=== PATIENT | male | born 1945 | race Caucasian/White ===

== ENCOUNTER 2022-01-15 08:34 | Inpatient (IN) | payer MEDICARE, MEDICAID, SELFPAY ==
[2022-01-15] VITALS (8 sets, daily range): BP systolic 105–145; BP diastolic 31–83; PULSE 29–49; RESP 12–16; TEMP 36.8–37.1; O2SAT 96–98; BMI 29.2
--- NOTE | ~2022-01-15 | XR_ITS ---
EXAMINATION: XR CHEST CLINICAL INFORMATION: Bradycardia COMPARISON: Chest 03/24/2020 TECHNIQUE: Frontal view of the chest was obtained. FINDINGS: The lungs are well-expanded and clear. The heart size is enlarged. Pulmonary vascularity is normal. No gross bony abnormality seen. XR/XR chest 1V IMPRESSION: Mild cardiomegaly. No acute pulmonary process seen.
[2022-01-15 09:16] LABS: Glucose, Whole Blood 122 mg/dL (60-115)
--- NOTE | 2022-01-15 09:25 | ECG_ITS ---
Test Reason : BRADYCARDIA Blood Pressure : / mmHG Vent. Rate : 037 BPM Atrial Rate : 000 BPM P-R Int : 000 ms QRS Dur : 164 ms QT Int : 520 ms P-R-T Axes : 000 -56 006 degrees QTc Int : 408 ms Atrial fibrillation with slow ventricular response Right bundle branch block Left anterior fascicular block Bifascicular block Septal infarct (cited on or before 24-MAR-2010) Abnormal ECG When compared with ECG of 24-MAR-2010 16:08, Atrial fibrillation has replaced Normal sinus rhythm Vent. rate has decreased Referred By: Yelena Leigh Electronically Signed By:MERLENE WEBER MD
[2022-01-15 09:28] LABS: MANUAL DIFF FLAG NO
[2022-01-15 09:29] LABS: Basophils Percent Auto 0.4 % (0-2); Eosinophils Absolute Auto 0.4 X10*3/uL (0.0-0.4); Eosinophils Percent Auto 4.2 % (0-4); Hematocrit 30.9 % (42.0-52.0); Hemoglobin 10.5 g/dl (14.0-18.0); Imm Gran Abs Auto 0.11 X10*3/uL (0.00-0.03); Imm Gran Pct Auto 1.1 % (0.0-0.4); Lymphocytes Absolute Auto 1.3 X10*3/uL (1.2-4.9); Lymphocytes Percent Auto 12.9 % (20-40); Mean Corpuscular Hemoglobin 30.1 pg (27.0-33.0); Mean Corpuscular Volume 88.5 fL (80.0-98.0); Mean Platelet Volume 9.6 fL (9.4-12.4); Monocytes Absolute Auto 0.9 X10*3/uL (0.1-1.2); Neutrophils Absolute Auto 7.5 x10*3/uL (2.0-8.3); Neutrophils Percent Auto 72.4 % (45-73); Platelet Count 237 X10*3/uL (160-400); Red Blood Count 3.49 X10*6/uL (4.60-5.80); White Blood Count 10.4 X10*3/uL (4.8-10.8)
[2022-01-15 09:44] LABS: INTERNATIONAL NORM RATIO 1.7 (0.9-1.1); Prothrombin Time 19.8 SEC (9.9-13.0)
[2022-01-15 09:47] LABS: Partial Thromboplastin Time 40.4 SEC (24.1-38.0)
[2022-01-15 09:56] LABS: Anion Gap 13 (12-20); Blood Urea Nitrogen 44 mg/dL (9-16); Calcium 8.7 mg/dL (8.4-10.2); Carbon Dioxide 22 mmol/L (22-29); Chloride 95 mmol/L (96-108); Creatinine Clr Calc Pharmacy 60.9; Estimated Glomerular Filt Rate 51; Glucose Random 133 mg/dL (60-115); Potassium 4.7 mmol/L (3.3-5.1); Sodium 125 mmol/L (135-145)
[2022-01-15] MEDS: Lidocaine HCl 1 % MPF 5 ML VIAL SUBCUT (09:58)
--- NOTE | 2022-01-15 09:58 | PC.NURSE ---
3 additional sutures to right lower extremity wound completed by Yelena BARRIENTOS for uncontrolled bleeding. HR noted to be 29-43, Yelena BARRIENTOS aware and new orders issued. Patient c/o dizziness. denies ches pain or palpitations today.
[2022-01-15 10:20] LABS: Alanine Aminotransferase 10 U/L (0-40); Albumin Level 3.2 g/dL (3.5-5.0); Alkaline Phosphatase 53 U/L (39-117); Aspartate Amino Transferase 16 U/L (5-37); Bilirubin Direct 0.4 mg/dL (0.0-0.5); Bilirubin Total 0.9 mg/dL (0.0-1.0); Magnesium 1.7 mg/dL (1.6-2.6); Total Protein 6.2 g/dL (6.5-8.0)
--- NOTE | 2022-01-15 10:26 | ED_ITS ---
HPI - General Adult General Chief complaint: Wound/Laceration Stated complaint: lower leg wound Time Seen by Provider: 01/15/22 08:52 Source: patient Mode of arrival: ambulatory History of Present Illness HPI narrative: 76-year-old male with a past medical history of diabetes, GERD, HTN, on Xarelto, presenting to ED complaining of uncontrolled bleeding to RLE wound s/p dresser falling on leg yesterday and 18 sutures being placed at [place] [facility]. Reports lightheadedness & generalized fatigue. denies fever, chills, CP/ SOB, abdominal pain, nausea /vomiting, headache Onset (ago): day(s) Related Data Home Medications Medication Instructions Recorded Confirmed Lactobacillus acidophilus 1 cap PO DAILY 01/15/22 01/15/22 (Acidophilus) acetaminophen 325 mg tablet 650 mg PO BID 01/15/22 01/15/22 aspirin 81 mg chewable tablet 81 mg PO DAILY 01/15/22 01/15/22 atorvastatin 10 mg tablet 1 tab PO BEDTIME 01/15/22 01/15/22 carvedilol 12.5 mg tablet 1 tab PO BID 01/15/22 01/15/22 cholecalciferol (vitamin D3) 25 25 mcg PO DAILY 01/15/22 01/15/22 mcg (1,000 unit) tablet doxazosin 8 mg tablet 1 tab PO BEDTIME 01/15/22 01/15/22 ferrous sulfate 324 mg (65 mg 324 mg PO DAILY 01/15/22 01/15/22 iron) tablet,delayed release furosemide 40 mg tablet 1 tab PO DAILY 01/15/22 01/15/22 insulin detemir U-100 100 unit/mL 50 unit SUBCUT DAILY 01/15/22 01/15/22 subcutaneous solution (Levemir U-100 Insulin) levothyroxine 50 mcg tablet 1 tab PO DAILY 01/15/22 01/15/22 lisinopril 5 mg tablet 1 tab PO DAILY 01/15/22 01/15/22 multivitamin 1 tab PO DAILY 01/15/22 01/15/22 omeprazole 20 mg capsule,delayed 1 cap PO DAILY 01/15/22 01/15/22 release polyethylene glycol 3350 17 gram 17 g PO DAILY PRN 01/15/22 01/15/22 oral powder packet (Miralax) polyethylene glycol 3350 17 17 g PO MOWEFR 01/15/22 01/15/22 gram/dose oral powder (Miralax) rivaroxaban 20 mg tablet (Xarelto) 1 tab PO DAILY 01/15/22 01/15/22 sitagliptin 50 mg-metformin 500 mg 1 tab PO BID 01/15/22 01/15/22 tablet (Janumet) tamsulosin 0.4 mg capsule 1 cap PO BEDTIME 01/15/22 01/15/22 Allergies Allergy/AdvReac Type Severity Reaction Status Date / Time No Known Allergies Allergy Verified 01/15/22 08:42 Review of Systems Review of Systems: Constitutional: No Fever, No Chills, + Fatigue, No Malaise ENT/Mouth: No Ear Pain, No Nasal Congestion, No sore throat, No Rhinorrhea Eyes: No Eye Pain, No Swelling, No Redness, No Vision Changes Cardiovascular: No Chest Pain, No SOB, No Dyspnea on Exertion, No Orthopnea, No Edema, No Palpitations Respiratory: No Cough, No Sputum, No Dyspnea Gastrointestinal: No Nausea, No Vomiting, No Diarrhea, No Constipation, No Abdominal pain Genitourinary: No Dysuria, No Urinary Frequency, No Flank Pain, No Urinary Flow Changes Musculoskeletal: No joint pain, No Myalgias, No Joint Swelling Skin: + bleeding wound,No rash Neuro: No Weakness, No Numbness, No Paresthesias, + lightheadedness, No Headache Yes all other systems are reviewed and are negative [facility] Past Medical History Attestation statement: The following information was validated with the patient. Medical History Diabetes 1.5, managed as type 1 GERD (gastroesophageal reflux disease) HTN (hypertension) Social History Social History Advance Directives: No Advance Directives Information Provided: No Physical Exam ED Vital Signs: Vital Signs - 24 hr 01/15/22 09:03 01/15/22 09:59 01/15/22 10:00 Temperature 98.3 F Pulse Rate 40 L 29 L 37 L Respiratory Rate 16 16 Blood Pressure 115/34 L 105/39 L Pulse Oximetry 97 97 BMI result Body Mass Index 29.2 Const General: cooperative, healthy appearing and no acute distress Orientation/consciousness: patient oriented x3 Limitations: no limitations HENKY Head: Yes normal to inspection Ears: hearing grossly normal bilaterally General nose exam: Normal external nose present Face and sinus: Yes normal facial exam Eyes General: appearance normal, both eyes and all related structures EOM: EOMs intact bilaterally Neck Neck: Yes normal visual inspection Resp Effort & Inspection: normal respiratory effort and no respiratory distress Auscultation: clear to auscultation bilaterally Cardio Rate: bradycardic Rhythm: abnormal rhythm Heart sounds: S1 normal heart sound present and S2 normal heart sound present GI Inspection: Yes normal to inspection Palpation (GI): Soft to palpation, nontender, no guarding and not rigid Skin Other: right lower extremity wound with intact sutures, weeping. Medial distal laceration with active bleeding Rashes: no rashes Neuro General: patient oriented x3 Gait exam (Neuro): Normal gait present Extrem General: Yes normal to inspection Course Course Course Narrative: - 3 sutures placed at distal laceration with improved bleeding control -1103-- no leukocytosis. H&H 10.5/30.9 ( 11.9/34.9 on labs from 01/01/22), coags mildly elevated - sodium 125 (labs from 01/01/22 126), BUN 44 (38 on previous labs), glucose WNL, troponin 17.6 > will obtain 3 hour repeat. -1130-- compression dressing removed and bleeding controlled. -- case discussed with Cardiology, Dr. Crystal, agrees with admission. Will hold Carvedilol XR chest 1V IMPRESSION: Mild cardiomegaly. No acute pulmonary process seen -1205-- patient admitted for further management Procedures Laceration Laceration 1: Site: lower extremity Side (If applicable): right Description: flap and irregular Depth: simple, single layer Amount of anesthesia used (mL): 2 Skin layer closed with: nylon Size (cm): 4-0 Number of sutures: 3 Technique: simple, interrupted Medical Decision Making [facility] Narrative Medical decision making narrative: 76-year-old male with a past medical history of diabetes, GERD, HTN, on Xarelto, presenting to ED complaining of uncontrolled bleeding to RLE wound s/p dresser falling on leg yesterday and 18 sutures being placed at [place] ED. On exam bradycardic down to 29, symptomatic, right lower extremity wound with active bleeding, will place suture for bleeding control/compression dressing. Rule out ACS/metabolic/ infectious etiologies. Patient is on beta-sandoval, reported history of bradycardia from previous Lyme disease, however states never with HR this low plan: EKG, labs, CXR, address wound, orthostatics, anticipated admission Medical Records Medical records reviewed: Yes I reviewed the patient's medical records. Lab Data Lab results reviewed: Yes I reviewed the patient's lab results. Result diagrams: 01/15/22 09:24 01/15/22 09:24 Labs: Lab Results 01/15/22 01/15/22 01/15/22 Range/Units 09:11 09:24 09:24 WBC 10.4 (4.8-10.8) X10*3/uL RBC 3.49 L (4.60-5.80) X10*6/uL Hgb 10.5 L (14.0-18.0) g/dl Hct 30.9 L (42.0-52.0) % MCV 88.5 (80.0-98.0) fL MCH 30.1 (27.0-33.0) pg MCHC 34.0 (31.0-36.0) g/dl RDW 13.0 (11.0-16.0) % Plt Count 237 (160-400) X10*3/uL MPV 9.6 (9.4-12.4) fL Immature Gran % (Auto) 1.1 H (0.0-0.4) % Neut % (Auto) 72.4 (45-73) % Lymph % (Auto) 12.9 L (20-40) % Conway % (Auto) 9.0 (2-11) % Eos % (Auto) 4.2 H (0-4) % Baso % (Auto) 0.4 (0-2) % Lymph # (Auto) 1.3 (1.2-4.9) X10*3/uL Conway # (Auto) 0.9 (0.1-1.2) X10*3/uL Eos # (Auto) 0.4 (0.0-0.4) X10*3/uL Baso # (Auto) 0.0 (0.0-0.2) X10*3/uL Abs Immat Gran (auto) 0.11 H (0.00-0.03) X10*3/uL Absolute Neuts (auto) 7.5 (2.0-8.3) x10*3/uL Absolute Nucleated RBC 0.000 (0.0-0.012) X10*3/uL Nucleated RBC % (auto) 0.0 (0.0-0.2) /100WBC PT 19.8 H (9.9-13.0) SEC INR 1.7 H (0.9-1.1) APTT 40.4 H (24.1-38.0) SEC Sodium (135-145) mmol/L Potassium (3.3-5.1) mmol/L Chloride (96-108) mmol/L Carbon Dioxide (22-29) mmol/L Anion Gap (12-20) BUN (9-16) mg/dL Creatinine (0.5-1.4) mg/dL Estim Creat Clear Calc Estimated GFR POC Glucose 122 H (60-115) mg/dL Random Glucose (60-115) mg/dL Calcium (8.4-10.2) mg/dL Magnesium (1.6-2.6) mg/dL Total Bilirubin (0.0-1.0) mg/dL Direct Bilirubin (0.0-0.5) mg/dL AST (5-37) U/L ALT (0-40) U/L Alkaline Phosphatase (39-117) U/L Troponin I High Sens (<3.5-35.0) ng/L B-Natriuretic Peptide (<100) pg/mL Total Protein (6.5-8.0) g/dL Albumin (3.5-5.0) g/dL COVID-19 (CARLOS) (Negative) COVID-19 Clin Com 01/15/22 01/15/22 01/15/22 Range/Units 09:24 09:24 10:51 WBC (4.8-10.8) X10*3/uL RBC (4.60-5.80) X10*6/uL Hgb (14.0-18.0) g/dl Hct (42.0-52.0) % MCV (80.0-98.0) fL MCH (27.0-33.0) pg MCHC (31.0-36.0) g/dl RDW (11.0-16.0) % Plt Count (160-400) X10*3/uL MPV (9.4-12.4) fL Immature Gran % (Auto) (0.0-0.4) % Neut % (Auto) (45-73) % Lymph % (Auto) (20-40) % Conway % (Auto) (2-11) % Eos % (Auto) (0-4) % Baso % (Auto) (0-2) % Lymph # (Auto) (1.2-4.9) X10*3/uL Conway # (Auto) (0.1-1.2) X10*3/uL Eos # (Auto) (0.0-0.4) X10*3/uL Baso # (Auto) (0.0-0.2) X10*3/uL Abs Immat Gran (auto) (0.00-0.03) X10*3/uL Absolute Neuts (auto) (2.0-8.3) x10*3/uL Absolute Nucleated RBC (0.0-0.012) X10*3/uL Nucleated RBC % (auto) (0.0-0.2) /100WBC PT (9.9-13.0) SEC INR (0.9-1.1) APTT (24.1-38.0) SEC Sodium 125 L (135-145) mmol/L Potassium 4.7 (3.3-5.1) mmol/L Chloride 95 L (96-108) mmol/L Carbon Dioxide 22 (22-29) mmol/L Anion Gap 13 (12-20) BUN 44 H (9-16) mg/dL Creatinine 1.35 (0.5-1.4) mg/dL Estim Creat Clear Calc 60.9 Estimated GFR 51 POC Glucose (60-115) mg/dL Random Glucose 133 H (60-115) mg/dL Calcium 8.7 (8.4-10.2) mg/dL Magnesium 1.7 (1.6-2.6) mg/dL Total Bilirubin 0.9 (0.0-1.0) mg/dL Direct Bilirubin 0.4 (0.0-0.5) mg/dL AST 16 (5-37) U/L ALT 10 (0-40) U/L Alkaline Phosphatase 53 (39-117) U/L Troponin I High Sens 17.6 (<3.5-35.0) ng/L B-Natriuretic Peptide 52 (<100) pg/mL Total Protein 6.2 L (6.5-8.0) g/dL Albumin 3.2 L (3.5-5.0) g/dL COVID-19 (CARLOS) Negative (Negative) COVID-19 Clin Com See Note ECG Data Attestation: I personally reviewed and interpreted this ECG as follows: Prior ECG tracings: available for review Interpretation: EKG with irregular rate with slow ventricular response. Rate of 37. QRS 164. QTC 408. No STEMI. Significant change from prior Discharge Plan Discharge Clinical Impression: Symptomatic bradycardia, Bleeding from wound Patient Disposition: Admitted As Inpatient
[2022-01-15 10:29] LABS: B Type Natriuretic Peptide 52 pg/mL (<100); Troponin-I High Sensitivity 17.6 ng/L (<3.5-35.0)
[2022-01-15] MEDS: 0.9 % Sodium Chloride 500 ML 999 ML IV (10:35)
[2022-01-15 11:13] LABS: COVID-19 Test Negative (Negative)
--- NOTE | 2022-01-15 11:22 | PHA.MEDREC ---
Pharmacy Consult ? Medication Reconciliation Pharmacy has completed the medication reconciliation. Patient has medicaiton list from [facility] that lines with claim history. Odette White, ThuyD
--- NOTE | 2022-01-15 11:26 | PC.NURSE ---
patient rotated onto left side for comfort to patient's sacrum. patient in no obvious distress at this time, pressure dressing removed. bleeding controlled, loose dressing placed on wound at this time
--- NOTE | 2022-01-15 12:47 | PM.IMHP ---
History of Present Illness Date of Service: 01/15/22 Chief Complaint: bleeding rle wound 76-year-old male presented with right lower extremity wound bleeding. Patient is newly transferred from intermediate facility to senior living. He had a dresser fall on his leg and 18 sutures placed at [place] [facility]. He reports now that he is uncontrolled bleeding at site. Patient is on Xarelto for AFib. He is also on aspirin for history of CVA. Bleeding was controlled by ED team. Patient also noted to be bradycardic as low as high 20s, he is asymptomatic, he reports he has history of bradycardia but never goes slow. He notes some conduction defects since history of Lyme disease in the , patient appears to be an carvedilol 12.5 mg b.i.d. reportedly for hypertension. Patient also noted to have hyponatremia of 125, reviewing previous labs this appears to be chronic. Patient is on furosemide, he also reports until 2 days prior to presentation, regular drinking 2 L of water before bedtime. Patient denies chest pain, fever, chills. Review of Systems Review of Systems: Constitutional: Denies fever, denies Chills Eyes: denies blurry vision ENT: denies sore throat CVS: denies chest pain Respiratory: Denies dyspnea GI: no abdominal pain : denies dysuria MSK: denies neck pain Skin: denies rash Neuro: denies specific motor weakness Psych: denies suicidal ideation Endocrine: denies heat/cold intolerance Hematologic: easy bleeding Allergy: denies hives [facility] Medical History Chronic atrial fibrillation CVA (cerebral vascular accident) Diabetes mellitus GERD (gastroesophageal reflux disease) HTN (hypertension) Hyponatremia Hypothyroid Lyme disease Unilateral AKA Urinary retention Family History Son Diabetes Social History Alcohol intake: never Patient Tobacco Use Status: Never used Tobacco Use of substances other than those prescribed or required for medical reasons: No Advance Directives: No Advance Directives Information Provided: No Meds Allergies Allergy/AdvReac Type Severity Reaction Status Date / Time No Known Allergies Allergy Verified 01/15/22 08:42 Active Medications: Current Medications Acetaminophen (Acetaminophen 325 Mg Tablet) 650 mg PO BID [place] Aspirin (Aspirin 81 Mg Tab.Chew) 81 mg PO DAILY [facility] Atorvastatin Calcium (Atorvastatin Calcium 10 Mg Tablet) 10 mg PO BEDTIME [facility] Dextrose (Dextrose 50 % 25 Gm/50 Ml Syringe) 25 gm IVPUSH Q15M PRN; Protocol PRN Reason: per Hypoglycemia Standing Ord. Doxazosin Mesylate (Doxazosin Mesylate 2 Mg Tablet) 8 mg PO BEDTIME [facility]; Protocol Enoxaparin Sodium (Enoxaparin Sodium 40 Mg/0.4 Ml Syringe) 40 mg SUBCUT Q24H [facility] Ferrous Sulfate (Ferrous Sulfate 324 Mg Tablet.) 324 mg PO DAILY [facility] Glucose (Glucose Gel 15 Gm Gel..Gram.) 15 gm PO Q15M PRN; Protocol PRN Reason: per Hypoglycemia Standing Ord. Insulin Glargine (Insulin Glargine,Hum.Rec.Anlog 100 Unit/Ml 10 Ml Vial) 15 unit SUBCUT BEDTIME [facility] Insulin Human Lispro (Insulin Lispro 100 Unit/Ml 3 Ml Vial) 0 unit SUBCUT QIDACHS [facility]; Protocol Levothyroxine Sodium (Levothyroxine Sodium 50 Mcg Tablet) 50 mcg PO DAILY@0600 [facility] Lisinopril (Lisinopril 5 Mg Tablet) 5 mg PO DAILY [facility]; Protocol Multivitamins/Vitamin C (Multivitamin Tablet) 1 tab PO DAILY [facility] Omeprazole (Omeprazole 20 Mg Capsule.) 20 mg PO DAILY@0630 [facility] Pharmacy Consult (Consult Rx Perform Med Rec) 1 each MISCELLANE ONCE PRN PRN Reason: Consult order Sodium Chloride (0.9 % Sodium Chloride Flush 3 Ml Syringe) 3 ml IVFLUSH QSHIFT [facility] Vitamin D (Cholecalciferol (Vitamin D3) 25 Mcg Tablet) 25 mcg PO DAILY [facility] Home Medications Medication Instructions Recorded Confirmed Last Taken Type Lactobacillus acidophilus 1 cap PO DAILY 01/15/22 01/15/22 01/14/22 History (Acidophilus) acetaminophen 325 mg tablet 650 mg PO BID 01/15/22 01/15/22 01/14/22 History aspirin 81 mg chewable tablet 81 mg PO DAILY 01/15/22 01/15/22 01/14/22 History atorvastatin 10 mg tablet 1 tab PO BEDTIME 01/15/22 01/15/22 01/14/22 History carvedilol 12.5 mg tablet 1 tab PO BID 02/01/15/22 01/14/22 History cholecalciferol (vitamin D3) 25 25 mcg PO DAILY 01/15/22 01/15/22 01/14/22 History mcg (1,000 unit) tablet doxazosin 8 mg tablet 1 tab PO BEDTIME 01/15/22 01/15/22 01/14/22 History ferrous sulfate 324 mg (65 mg 324 mg PO DAILY 01/15/22 01/15/22 01/14/22 History iron) tablet,delayed release furosemide 40 mg tablet 1 tab PO DAILY 01/15/22 01/15/22 01/14/22 History insulin detemir U-100 100 unit/mL 50 unit SUBCUT DAILY 01/15/22 01/15/22 01/14/22 History subcutaneous solution (Levemir U-100 Insulin) levothyroxine 50 mcg tablet 1 tab PO DAILY 01/15/22 01/15/22 01/14/22 History lisinopril 5 mg tablet 1 tab PO DAILY 01/15/22 01/15/22 01/14/22 History multivitamin 1 tab PO DAILY 01/15/22 01/15/22 01/14/22 History omeprazole 20 mg capsule,delayed 1 cap PO DAILY 01/15/22 01/15/22 01/14/22 History release polyethylene glycol 3350 17 gram 17 g PO DAILY PRN 01/15/22 01/15/22 Unknown History oral powder packet (Miralax) polyethylene glycol 3350 17 17 g PO MOWEFR 01/15/22 01/15/22 01/12/22 History gram/dose oral powder (Miralax) rivaroxaban 20 mg tablet (Xarelto) 1 tab PO DAILY 01/15/22 01/15/22 01/14/22 History sitagliptin 50 mg-metformin 500 mg 1 tab PO BID 01/15/22 01/15/22 01/14/22 History tablet (Janumet) tamsulosin 0.4 mg capsule 1 cap PO BEDTIME 01/15/22 01/15/22 01/14/22 History Physical Exam Vital Signs and Narrative: Vital Signs: Last Vital Signs Temp 98.3 F 01/15/22 09:03 Pulse 37 L 01/15/22 10:00 Resp 16 01/15/22 10:00 BP 105/39 L 01/15/22 10:00 Pulse Ox 97 02/18/22 10:00 BMI result Body Mass Index 29.2 General: no acute distress HEENT: atraumatic Neck: normal to visual inspection CVS: S1, S2, RRR Resp: CTA bilateral Chest: non tender GI: soft, non tender, non distended : no CVA tenderness, chronic dodd in place Skin: no rashes Extremities: RLE wound dressed (not examined to allow for bleeding control), Left AKA Neuro: Oriented X3, mild left hemiparesis Psych: cooperative Results Labs CBC and Chem 7: 01/15/22 09:24 01/15/22 09:24 Labs: Laboratory Results - last 24 hr 01/15/22 01/15/22 01/15/22 09:11 09:24 09:24 MCV 88.5 MCH 30.1 MCHC 34.0 RDW 13.0 Plt Count 237 MPV 9.6 Immature Gran % (Auto) 1.1 H Neut % (Auto) 72.4 Lymph % (Auto) 12.9 L Carson % (Auto) 9.0 Eos % (Auto) 4.2 H Baso % (Auto) 0.4 Lymph # (Auto) 1.3 Carson # (Auto) 0.9 Eos # (Auto) 0.4 Baso # (Auto) 0.0 Abs Immat Gran (auto) 0.11 H Absolute Neuts (auto) 7.5 Absolute Nucleated RBC 0.000 Nucleated RBC % (auto) 0.0 PT 19.8 H INR 1.7 H APTT 40.4 H Anion Gap Estim Creat Clear Calc Estimated GFR POC Glucose 122 H Random Glucose Calcium Magnesium Total Bilirubin Direct Bilirubin AST ALT Alkaline Phosphatase B-Natriuretic Peptide Total Protein Albumin COVID-19 (CARLOS) COVID-19 Clin Com 01/15/22 01/15/22 01/15/22 09:24 09:24 10:51 MCV MCH MCHC RDW Plt Count MPV Immature Gran % (Auto) Neut % (Auto) Lymph % (Auto) Carson % (Auto) Eos % (Auto) Baso % (Auto) Lymph # (Auto) Carson # (Auto) Eos # (Auto) Baso # (Auto) Abs Immat Gran (auto) Absolute Neuts (auto) Absolute Nucleated RBC Nucleated RBC % (auto) PT INR APTT Anion Gap 13 Estim Creat Clear Calc 60.9 Estimated GFR 51 POC Glucose Random Glucose 133 H Calcium 8.7 Magnesium 1.7 Total Bilirubin 0.9 Direct Bilirubin 0.4 AST 16 ALT 10 Alkaline Phosphatase 53 B-Natriuretic Peptide 52 Total Protein 6.2 L Albumin 3.2 L COVID-19 (CARLOS) Negative COVID-19 Clin Com See Note Imaging Radiologist's Impressions: Impressions Chest X-Ray 01/15/22 10:47 IMPRESSION: Mild cardiomegaly. No acute pulmonary process seen. Assessment and Plan (1) Hyponatremia: Status: Acute Plan 76M presented for bleeding rle wound, found to have bradycardia, hyponatremia bleeding RLE wound dressed/compression hold xarelto for now chronic atrial fibrillation with slow ventircular response hold carvedilol, monitor on tele, cardio eval holding xarelto for wound bleeding hyponatremia hold lasix fluid restrict, monitor check urine sodium, osm HTN coreg on hold lisinopril ?chf - unspecified lasix on hold DM basal, bolus insulin history of cva mild left hemiparesis asa, statin hypothyroid synthroid chronic urinary retention alpha sandoval dodd dvt prophylaxis - will use lovenox while holding xarelto full code Quality Stroke Does the patient have a stroke diagnosis?: No VTE Prior VTE?: No VTE Risk Level:: Medical - moderate - high VTE Device Contraindication: Treatment Not Indicated VTE Drug Contraindication: N/A - Med Ordered
[2022-01-15 13:09] LABS: Appearance Urine HAZY; Color Urine YELLOW; Glucose Urine UA NEG (NEG); Leukocyte Esterase Urine 3+ (NEG); Nitrite Urine POS (NEG); PH 5.5 (5.0-8.0); Urine Blood TRACE (NEG); Urine Ketones NEG (NEG); Urine Protein NEG (NEG-TRACE)
[2022-01-15 13:19] LABS: WBC Urine 50-75 /HPF (0-4)
[2022-01-15 13:20] LABS: Bacteria Urine 2+ /LPF; Squamous Epithelial Cell Urine 1+ /LPF
[2022-01-15 13:21] LABS: Mucus Urine TRACE /LPF; Sodium Urine Random < 20.0 mmol/L
[2022-01-15 13:26] LABS: Osmolality Urine 286 mosm/kg (373-1093)
--- NOTE | 2022-01-15 14:42 | PM.CNCAR ---
History of Present Illness History of Present Illness Date of Service: 01/15/22 Requesting physician: Elías Bob Chief complaint: symptomatic bradycardia Narrative: I was consulted to see Chuy in cardiology consultation today for bradycardia. He is a 76-year-old male who lives in a nursing facility due to inability to take care in ambulate because of amputation. Patient was brought to the emergency room because he had injury to his right leg with continued bleeding the which could not be stopped. He then underwent wound therapy in the ED with closure. However he was noted to be bradycardic with heart rate in the 30s. He also has symptoms of lightheadedness heart rate went into the 20s. Therefore decision was made to be admitting him to the hospital for bradycardia with symptoms. Patient is a poor historian. Patient has prior history of diabetes difficult control, left above knee amputation for infection, hypertension, chronic atrial fibrillation, question stroke. Patient has been on oral anticoagulation therapy as well as carvedilol for rate control. Patient says he has always bradycardic with heart rate in the 40s and in the past he has complained about lightheadedness but no workup has been pursued. He is very vague about any other prior cardiac history regarding prior myocardial infarction. Says he has some kind of valve issues, very nonspecific Review of Systems Constitutional: Constitutional: Reports no additional constitutional complaints Eyes: Eyes: Reports no additional eye complaints Cardiovascular: Cardiovascular: Denies chest pain, Reports lightheadedness, Denies Loss of Consciousness, Denies palpitations and Denies dyspnea Respiratory: Respiratory: Reports no additional respiratory complaints and Denies dyspnea Gastrointestinal: Gastrointestinal: Reports no additional gastrointestinal complaints Musculoskeletal: Musculoskeletal: Reports no additional musculoskeletal complaints Neurologic: Reports system reviewed and no additional complaints, except as documented Psychiatric: Psychiatric: Reports no additional psychiatric complaints Endocrine: Endocrine: Reports no additional endocrine complaints and Denies palpitations PMFSH Past Medical History Medical History Chronic atrial fibrillation CVA (cerebral vascular accident) Diabetes mellitus GERD (gastroesophageal reflux disease) HTN (hypertension) Hyponatremia Hypothyroid Lyme disease Unilateral AKA Urinary retention Family History Family History Son Diabetes Social History Social History Alcohol intake: never Patient Tobacco Use Status: Never used Tobacco Use of substances other than those prescribed or required for medical reasons: No Advance Directives: No Advance Directives Information Provided: No Meds Allergies Allergy/AdvReac Type Severity Reaction Status Date / Time No Known Allergies Allergy Verified 01/15/22 08:42 Active Medications: Current Medications Acetaminophen (Acetaminophen 325 Mg Tablet) 650 mg PO BID [facility] Aspirin (Aspirin 81 Mg Tab.Chew) 81 mg PO DAILY [facility] Atorvastatin Calcium (Atorvastatin Calcium 10 Mg Tablet) 10 mg PO BEDTIME [facility] Dextrose (Dextrose 50 % 25 Gm/50 Ml Syringe) 25 gm IVPUSH Q15M PRN; Protocol PRN Reason: per Hypoglycemia Standing Ord. Doxazosin Mesylate (Doxazosin Mesylate 2 Mg Tablet) 8 mg PO BEDTIME [facility]; Protocol Enoxaparin Sodium (Enoxaparin Sodium 40 Mg/0.4 Ml Syringe) 40 mg SUBCUT Q24H [facility] Ferrous Sulfate (Ferrous Sulfate 324 Mg Tablet.) 324 mg PO DAILY [facility] Glucose (Glucose Gel 15 Gm Gel..Gram.) 15 gm PO Q15M PRN; Protocol PRN Reason: per Hypoglycemia Standing Ord. Insulin Glargine (Insulin Glargine,Hum.Rec.Anlog 100 Unit/Ml 10 Ml Vial) 15 unit SUBCUT BEDTIME [facility] Insulin Human Lispro (Insulin Lispro 100 Unit/Ml 3 Ml Vial) 0 unit SUBCUT QIDACHS [facility]; Protocol Levothyroxine Sodium (Levothyroxine Sodium 50 Mcg Tablet) 50 mcg PO DAILY@0600 [facility] Lisinopril (Lisinopril 5 Mg Tablet) 5 mg PO DAILY [facility]; Protocol Multivitamins/Vitamin C (Multivitamin Tablet) 1 tab PO DAILY [facility] Omeprazole (Omeprazole 20 Mg Capsule.) 20 mg PO DAILY@0630 [facility] Pharmacy Consult (Consult Rx Perform Med Rec) 1 each MISCELLANE ONCE PRN PRN Reason: Consult order Sodium Chloride (0.9 % Sodium Chloride Flush 3 Ml Syringe) 3 ml IVFLUSH QSHIFT [facility] Vitamin D (Cholecalciferol (Vitamin D3) 25 Mcg Tablet) 25 mcg PO DAILY [facility] Home Medications Medication Instructions Recorded Confirmed Last Taken Type Lactobacillus acidophilus 1 cap PO DAILY 01/15/22 01/15/22 01/14/22 History (Acidophilus) acetaminophen 325 mg tablet 650 mg PO BID 01/15/22 01/15/22 01/14/22 History aspirin 81 mg chewable tablet 81 mg PO DAILY 01/15/22 01/15/22 01/14/22 History atorvastatin 10 mg tablet 1 tab PO BEDTIME 01/15/22 01/15/22 01/14/22 History carvedilol 12.5 mg tablet 1 tab PO BID 01/15/22 01/15/22 01/14/22 History cholecalciferol (vitamin D3) 25 25 mcg PO DAILY 01/15/22 01/15/22 01/14/22 History mcg (1,000 unit) tablet doxazosin 8 mg tablet 1 tab PO BEDTIME 01/15/22 01/15/22 01/14/22 History ferrous sulfate 324 mg (65 mg 324 mg PO DAILY 01/15/22 01/15/22 01/14/22 History iron) tablet,delayed release furosemide 40 mg tablet 1 tab PO DAILY 01/15/22 01/15/22 01/14/22 History insulin detemir U-100 100 unit/mL 50 unit SUBCUT DAILY 01/15/22 01/15/22 01/14/22 History subcutaneous solution (Levemir U-100 Insulin) levothyroxine 50 mcg tablet 1 tab PO DAILY 01/15/22 01/15/22 01/14/22 History lisinopril 5 mg tablet 1 tab PO DAILY 01/15/22 01/15/22 01/14/22 History multivitamin 1 tab PO DAILY 01/15/22 01/15/22 01/14/22 History omeprazole 20 mg capsule,delayed 1 cap PO DAILY 01/15/22 01/15/22 01/14/22 History release polyethylene glycol 3350 17 gram 17 g PO DAILY PRN 01/15/22 01/15/22 Unknown History oral powder packet (Miralax) polyethylene glycol 3350 17 17 g PO MOWEFR 01/15/22 01/15/22 01/12/22 History gram/dose oral powder (Miralax) rivaroxaban 20 mg tablet (Xarelto) 1 tab PO DAILY 01/15/22 01/15/22 01/14/22 History sitagliptin 50 mg-metformin 500 mg 1 tab PO BID 01/15/22 01/15/22 01/14/22 History tablet (Janumet) tamsulosin 0.4 mg capsule 1 cap PO BEDTIME 01/15/22 01/15/22 01/14/22 History Physical Exam Vital Signs: Vital Signs: Last Vital Signs Temp 98.3 F 01/15/22 09:03 Pulse 37 L 01/15/22 10:00 Resp 16 01/15/22 10:00 BP 105/39 L 01/15/22 10:00 Pulse Ox 97 01/15/22 10:00 BMI result Body Mass Index 29.2 Const: General: cooperative, comfortable, no acute distress, alert and awake Nutritional Appearance: obese Orientation/consciousness: patient oriented x3 HENMT: Head: Yes normocephalic and Yes atraumatic Neck: Neck: Yes trachea midline, Yes supple and Yes no JVD Resp: Effort & Inspection: normal respiratory effort Auscultation: clear to auscultation bilaterally Cardio: Jugular venous distension: no JVD Rate: bradycardic Rhythm: abnormal rhythm irregularly irregular Heart sounds: S1 normal heart sound present, S2 normal heart sound present, no click, no gallops and no murmurs GI: Auscultation: normal bowel sounds Skin: General skin exam: no rashes or lesions noted Neuro: General: patient oriented x3 and no focal motor deficits Objective Labs and Meds Result diagrams: 01/15/22 09:24 01/15/22 09:24 Lab results: Laboratory Results - last 24 hr 01/15/22 01/15/22 01/15/22 09:11 09:24 09:24 WBC 10.4 RBC 3.49 L Hgb 10.5 L Hct 30.9 L MCV 88.5 MCH 30.1 MCHC 34.0 RDW 13.0 Plt Count 237 MPV 9.6 Immature Gran % (Auto) 1.1 H Neut % (Auto) 72.4 Lymph % (Auto) 12.9 L [place] % (Auto) 9.0 Eos % (Auto) 4.2 H Baso % (Auto) 0.4 Lymph # (Auto) 1.3 [place] # (Auto) 0.9 Eos # (Auto) 0.4 Baso # (Auto) 0.0 Abs Immat Gran (auto) 0.11 H Absolute Neuts (auto) 7.5 Absolute Nucleated RBC 0.000 Nucleated RBC % (auto) 0.0 PT 19.8 H INR 1.7 H APTT 40.4 H Sodium Potassium Chloride Carbon Dioxide Anion Gap BUN Creatinine Estim Creat Clear Calc Estimated GFR POC Glucose 122 H Random Glucose Calcium Magnesium Total Bilirubin Direct Bilirubin AST ALT Alkaline Phosphatase Troponin I High Sens B-Natriuretic Peptide Total Protein Albumin Urine Color Urine Appearance Urine pH Ur Specific [place] Urine Protein Urine Glucose (UA) Urine Ketones Urine Blood Urine Nitrite Ur Leukocyte Esterase Urine RBC Urine WBC Ur Squamous Epith Cells Urine Bacteria Urine Mucus Urine Osmolality Ur Random Sodium COVID-19 (CARLOS) COVID-19 Clin Com 01/15/22 01/15/22 01/15/22 09:24 09:24 10:51 WBC RBC Hgb Hct MCV MCH MCHC RDW Plt Count MPV Immature Gran % (Auto) Neut % (Auto) Lymph % (Auto) [place] % (Auto) Eos % (Auto) Baso % (Auto) Lymph # (Auto) [place] # (Auto) Eos # (Auto) Baso # (Auto) Abs Immat Gran (auto) Absolute Neuts (auto) Absolute Nucleated RBC Nucleated RBC % (auto) PT INR APTT Sodium 125 L Potassium 4.7 Chloride 95 L Carbon Dioxide 22 Anion Gap 13 BUN 44 H Creatinine 1.35 Estim Creat Clear Calc 60.9 Estimated GFR 51 POC Glucose Random Glucose 133 H Calcium 8.7 Magnesium 1.7 Total Bilirubin 0.9 Direct Bilirubin 0.4 AST 16 ALT 10 Alkaline Phosphatase 53 Troponin I High Sens 17.6 B-Natriuretic Peptide 52 Total Protein 6.2 L Albumin 3.2 L Urine Color Urine Appearance Urine pH Ur Specific [place] Urine Protein Urine Glucose (UA) Urine Ketones Urine Blood Urine Nitrite Ur Leukocyte Esterase Urine RBC Urine WBC Ur Squamous Epith Cells Urine Bacteria Urine Mucus Urine Osmolality Ur Random Sodium COVID-19 (CARLOS) Negative COVID-19 Clin Com See Note 01/15/22 01/15/22 01/15/22 12:50 12:50 12:50 WBC RBC Hgb Hct MCV MCH MCHC RDW Plt Count MPV Immature Gran % (Auto) Neut % (Auto) Lymph % (Auto) [place] % (Auto) Eos % (Auto) Baso % (Auto) Lymph # (Auto) [place] # (Auto) Eos # (Auto) Baso # (Auto) Abs Immat Gran (auto) Absolute Neuts (auto) Absolute Nucleated RBC Nucleated RBC % (auto) PT INR APTT Sodium Potassium Chloride Carbon Dioxide Anion Gap BUN Creatinine Estim Creat Clear Calc Estimated GFR POC Glucose Random Glucose Calcium Magnesium Total Bilirubin Direct Bilirubin AST ALT Alkaline Phosphatase Troponin I High Sens B-Natriuretic Peptide Total Protein Albumin Urine Color YELLOW Urine Appearance HAZY Urine pH 5.5 Ur Specific [place] 1.010 Urine Protein NEG Urine Glucose (UA) NEG Urine Ketones NEG Urine Blood TRACE Urine Nitrite POS H Ur Leukocyte Esterase 3+ H Urine RBC 1-4 Urine WBC 50-75 H Ur Squamous Epith Cells 1+ Urine Bacteria 2+ Urine Mucus TRACE Urine Osmolality 286 L Ur Random Sodium < 20.0 COVID-19 (CARLOS) COVID-19 Clin Com Imaging Radiologist's impression: Impressions Chest X-Ray 01/15/22 10:47 IMPRESSION: Mild cardiomegaly. No acute pulmonary process seen. Assessment and Plan (1) Bradycardia: Status: Acute patient with symptomatic bradycardia with atrial fibrillation with slow ventricular response in the setting of chronic known atrial fibrillation on current therapy with carvedilol. Patient says he has always been bradycardic, not sure why he is still on carvedilol therapy. He denies any prior history of tachycardia or tachy-lynsey syndrome. he does have underlying conduction system issues and very well could have progressive conduction system disease that may require pacing therapy. However at this point time will discontinue his carvedilol therapy and monitor him closely with full disclosure cardiac telemetry. This was discussed with him. If he remains persistently bradycardic with symptoms despite adequate what short time of 24-48 hours and/ or develops tachycardia that requires rate slowing medication require pacemaker placement. This was discussed with him. He understands and agrees. For now continue to monitor him. Does not require transvenous pacemaker as his blood pressure and overall cardiac output appears to be stable. Will follow with you. Thank you for allowing me to partake in his care Procedures Date of Service Date of Service: 01/15/22
[2022-01-15 16:18] LABS: Glucose, Whole Blood 127 mg/dL (60-115)
[2022-01-15] MEDS: 0.9 % Sodium Chloride Flush 3 ML SYRINGE IVFLUSH (16:20)
--- NOTE | 2022-01-15 21:30 | PC.NURSE ---
patient's wound dressing changed at this time. patient has dried blood noted to dressing, no active bleeding. patient updated on plan of care, no apparent distress
[2022-01-15] MEDS: Doxazosin Mesylate 2 MG TABLET 8 MG PO (22:06)
[2022-01-15] MEDS: Acetaminophen 325 MG TABLET 650 MG PO (22:07)
[2022-01-15] MEDS: Atorvastatin Calcium 10 MG TABLET PO (22:07)
[2022-01-15] MEDS: Insulin Glargine,Hum.rec.anlog 100 UNIT/ML 10 ML VIAL 15 UNIT SUBCUT (22:08)
[2022-01-15] MEDS: Insulin Lispro 100 UNIT/ML 3 ML VIAL SUBCUT (22:10)
[2022-01-15 22:26] LABS: Glucose, Whole Blood 200 mg/dL (60-115)
--- NOTE | 2022-01-15 23:25 | PC.NURSE ---
Assumed care of pt from main ED. Pt in NAD, attached to panel monitor and pulse ox, vitals as charted. Pt denies sx of bradycardia / hypotension. Call light at hand, educated to call for assistance. Awaiting inpatient bed assignment
--- NOTE | 2022-01-15 23:50 | PC.NURSE ---
Pt HR consistently in 30s, intermittently drops to 26. Pt remains asymptomatic. MD Grimes made aware
[2022-01-16 04:00] VITALS: BMI 29.2
[2022-01-16] MEDS: Omeprazole 20 MG CAPSULE.DR PO (05:52)
[2022-01-16] MEDS: Levothyroxine Sodium 50 MCG TABLET PO (05:52)
[2022-01-16] MEDS: Acetaminophen 325 MG TABLET 650 MG PO ×2 (05:53→22:20)
[2022-01-16 06:02] VITALS: BP 99/36; PULSE 30; RESP 14; O2SAT 96
--- NOTE | 2022-01-16 06:02 | PC.NURSE ---
Pt dressing changed by DUANE Rodriguez per pt request. Jennifer relayed to this RN that pt was endorsing pain. Administered tylenol (earlier than scheduled, okay per MD Grimes). Asked pt to score pt, pt stated it isn't so much pain, I'm concerned about the leg clotting. Pt stated no one is listening or doing anything about this. This RN assessed RLE and noted that foot is cool to the touch, pulses intact. Attempted to discuss POC w/ pt, explained we are holding anticoagulation and evaluating response, pt stated I'm more concerned about a clot than bleeding. Educated pt that uncontrolled hemorrhage would be equally as concerning, pt disagreeable, stated an aneurysm will kill me first. Stated I know my body better than anyone else and I am sick of this, maybe I will just leave the hospital right now. While administering medications, pt stated well I should be on a strict diet for the 'tests' today, they said nothing to eat or drink. Explained to pt that often NPO status includes an exception for sips w/ meds. Pt stated do whatever you think you are supposed to be doing. Pt did take meds, stated I'm from [place] and we do things differently there, we don't drink ice water with our pills. Offered ice-free water, pt stated don't even bother. While exiting room offered to re-cover leg w/ blanket, pt stated if someone is embarrassed about it you can cover my foot, yesterday I was butt and balls out but no one would cover me or pay any attention to me. Pt has call light at hand, encouraged to request assistance if needed.
--- NOTE | 2022-01-16 06:07 | PC.NURSE ---
cleaned and rewrapped PTS wound on right leg. Right leg is elevated with pillow underneath.
[2022-01-16 06:50] LABS: Hematocrit 27.1 % (42.0-52.0); Hemoglobin 9.2 g/dl (14.0-18.0); Mean Corpuscular HGB Conc 33.9 g/dl (31.0-36.0); Mean Corpuscular Hemoglobin 30.2 pg (27.0-33.0); Mean Corpuscular Volume 88.9 fL (80.0-98.0); Mean Platelet Volume 10.2 fL (9.4-12.4); Platelet Count 235 X10*3/uL (160-400); Red Blood Count 3.05 X10*6/uL (4.60-5.80); White Blood Count 7.9 X10*3/uL (4.8-10.8)
[2022-01-16 07:00] LABS: Anion Gap 10 (12-20); Blood Urea Nitrogen 38 mg/dL (9-16); Calcium 8.7 mg/dL (8.4-10.2); Carbon Dioxide 28 mmol/L (22-29); Chloride 97 mmol/L (96-108); Creatinine Clr Calc Pharmacy 70.3; Estimated Glomerular Filt Rate > 60; Glucose Fasting 111 mg/dL (60-99); Potassium 4.7 mmol/L (3.3-5.1); Sodium 130 mmol/L (135-145)
[2022-01-16] MEDS: Multivitamin TABLET 1 TAB PO (08:28)
[2022-01-16] MEDS: Aspirin 81 MG TAB.CHEW PO (08:28)
[2022-01-16] MEDS: Ferrous Sulfate 324 MG TABLET.DR PO (08:28)
[2022-01-16] MEDS: Cholecalciferol (Vitamin D3) 25 MCG TABLET PO (08:28)
[2022-01-16] MEDS: lisinopriL 5 MG TABLET PO (08:28)
[2022-01-16] MEDS: Enoxaparin Sodium 40 MG/0.4 ML SYRINGE SUBCUT (08:28)
[2022-01-16] MEDS: 0.9 % Sodium Chloride Flush 3 ML SYRINGE IVFLUSH (08:30)
--- NOTE | 2022-01-16 08:54 | PC.NURSE ---
Pt A&Ox3, agitated and agressive towards this RN, states youre stupid and a knoucklehead and you don't know how to do your job States this is a horrible hospital and he gets better care in [place], he states he came in for the sutures in his RLE to be looked at and cleaned due to the consistant bleeding, when I asked him where he got the sutures, he told me I was stupid because clearly they are in his leg, accused me of not knowing what I was doing and too concerned about his HR, when I told the patient I was aware of his leg and the issues involved he said I clearly was a bad nurse because I didn't touch his leg, I explained to pt I had just checked his pedal pulse, asked him if he could feel be touching and checked CMS he turned away from me and said I was a bad nurse. Pt then continued to berate me, explained I was trying to provide the best care for him for not only his HR but also his leg, he continued to call me names and said I didn't know anything, medicated as per MAR orders, told patient I was not going to take verbal abuse from him and handed him his call stuart. Told him to call if needs anything. Will continue to monitor.
--- NOTE | 2022-01-16 09:42 | MHC.CM.PN ---
Received phone call from patients Nurse Deck Lid Fitter at [facility], Bart Dumont.? Patient new to [facility] in [facility] and was set up with [facility] for wound care prior to admission. Bart requested we refer back to them for VNA services on DC.? [facility]. Bart requested we call him on discharge [phone],?or call the [facility] director at .?
--- NOTE | 2022-01-16 10:48 | PC.NURSE ---
Vanessa Wren, from [facility] [phone]
[2022-01-16 10:57] VITALS: BP 120/39; PULSE 36; RESP 14; TEMP 36.4; O2SAT 95
--- NOTE | 2022-01-16 11:05 | PM.PNCARD ---
Subjective Subjective Date of Service: 01/16/22 Principal diagnosis: bradycardia, atrial fibrillation Interval history: patient remains bradycardia with heart rate in the 30s. Blood pressure on the lower side. patient is very upset about his leg wound. He is not lightheaded when I was conversing with him. However is very upset and does not want to provide much history. I told him about need for pacemaker and he adamantly refuses Review of Systems Review of Systems Yes Other ( patient not wanting to converse) Physical Exam Vital Signs: Last Vital Signs Temp 97.5 F 01/16/22 10:57 Pulse 36 L 01/16/22 10:57 Resp 14 01/16/22 10:57 BP 120/39 L 01/16/22 10:57 Pulse Ox 95 01/16/22 10:57 BMI result Body Mass Index 29.2 patient did not allow any further examination Objective Labs and Meds Result diagrams: 01/16/22 05:53 01/16/22 05:53 Lab results: Laboratory Results - last 24 hr 01/15/22 01/15/22 01/15/22 09:11 10:51 12:50 WBC RBC Hgb Hct MCV MCH MCHC RDW Plt Count MPV Absolute Nucleated RBC Nucleated RBC % (auto) Sodium Potassium Chloride Carbon Dioxide Anion Gap BUN Creatinine Estim Creat Clear Calc Estimated GFR POC Glucose 122 H Fasting Glucose Calcium Urine Color YELLOW Urine Appearance HAZY Urine pH 5.5 Ur Specific [place] 1.010 Urine Protein NEG Urine Glucose (UA) NEG Urine Ketones NEG Urine Blood TRACE Urine Nitrite POS H Ur Leukocyte Esterase 3+ H Urine RBC 1-4 Urine WBC 50-75 H Ur Squamous Epith Cells 1+ Urine Bacteria 2+ Urine Mucus TRACE Urine Osmolality Ur Random Sodium COVID-19 (CARLOS) Negative COVID-19 Clin Com See Note 01/15/22 01/15/22 01/15/22 12:50 12:50 16:14 WBC RBC Hgb Hct MCV MCH MCHC RDW Plt Count MPV Absolute Nucleated RBC Nucleated RBC % (auto) Sodium Potassium Chloride Carbon Dioxide Anion Gap BUN Creatinine Estim Creat Clear Calc Estimated GFR POC Glucose 127 H Fasting Glucose Calcium Urine Color Urine Appearance Urine pH Ur Specific [place] Urine Protein Urine Glucose (UA) Urine Ketones Urine Blood Urine Nitrite Ur Leukocyte Esterase Urine RBC Urine WBC Ur Squamous Epith Cells Urine Bacteria Urine Mucus Urine Osmolality 286 L Ur Random Sodium < 20.0 COVID-19 (CARLOS) COVID-19 Clin Com 01/15/22 01/16/22 01/16/22 21:22 05:53 05:53 WBC 7.9 RBC 3.05 L Hgb 9.2 L Hct 27.1 L MCV 88.9 MCH 30.2 MCHC 33.9 RDW 13.0 Plt Count 235 MPV 10.2 Absolute Nucleated RBC 0.000 Nucleated RBC % (auto) 0.0 Sodium 130 L Potassium 4.7 Chloride 97 Carbon Dioxide 28 Anion Gap 10 L BUN 38 H Creatinine 1.17 Estim Creat Clear Calc 70.3 Estimated GFR > 60 POC Glucose 200 H Fasting Glucose 111 H Calcium 8.7 Urine Color Urine Appearance Urine pH Ur Specific [place] Urine Protein Urine Glucose (UA) Urine Ketones Urine Blood Urine Nitrite Ur Leukocyte Esterase Urine RBC Urine WBC Ur Squamous Epith Cells Urine Bacteria Urine Mucus Urine Osmolality Ur Random Sodium COVID-19 (CARLOS) COVID-19 Clin Com Imaging Radiologist's impression: Impressions Chest X-Ray 01/15/22 10:47 IMPRESSION: Mild cardiomegaly. No acute pulmonary process seen. Progress Note: A&P Assessment and plan (1) Bradycardia: Status: Acute Assessment and Plan: patient with symptomatic bradycardia with heart rate in the 20s with symptoms of lightheadedness. Patient remains bradycardic despite withdrawal of carvedilol therapy and there appears to be possibly conduction system disease given that he has underlying bifascicular block. Recommend single-chamber pacemaker placement. Patient however adamantly refuses to undergo pacemaker placement. We discussed the risk associated with this including risk of cardiac arrest. He says does not care and he wants to sign out against medical advise from this hospital. He says he will seek care somewhere else. Not sure if patient understands the gravity of the situation completely. discussed with thoracic surgery as well. (2) Chronic atrial fibrillation: Status: Acute Assessment and Plan: Chronic atrial fibrillation, currently with slow ventricular response. Avoid rate controlling medications. Has not developed any significant tachycardia at this point in time. Continue full oral anticoagulation as before. Will sign of the case at current time Unless patient remains hospitalized. Please call us Fall Risk Details Current Medications: Current Medications Acetaminophen (Acetaminophen 325 Mg Tablet) 650 mg PO BID [facility] Last Admin: 01/16/22 08:29 Dose: Not Given Documented by: Aspirin (Aspirin 81 Mg Tab.Chew) 81 mg PO DAILY [facility] Last Admin: 01/16/22 08:28 Dose: 81 mg Documented by: Atorvastatin Calcium (Atorvastatin Calcium 10 Mg Tablet) 10 mg PO BEDTIME [facility] Last Admin: 01/15/22 22:07 Dose: 10 mg Documented by: Dextrose (Dextrose 50 % 25 Gm/50 Ml Syringe) 25 gm IVPUSH Q15M PRN; Protocol PRN Reason: per Hypoglycemia Standing Ord. Doxazosin Mesylate (Doxazosin Mesylate 2 Mg Tablet) 8 mg PO BEDTIME [facility]; Protocol Last Admin: 01/15/22 22:06 Dose: 8 mg Documented by: Enoxaparin Sodium (Enoxaparin Sodium 40 Mg/0.4 Ml Syringe) 40 mg SUBCUT Q24H [facility] Last Admin: 01/16/22 08:28 Dose: 40 mg Documented by: Ferrous Sulfate (Ferrous Sulfate 324 Mg Tablet.) 324 mg PO DAILY [facility] Last Admin: 01/16/22 08:28 Dose: 324 mg Documented by: Glucose (Glucose Gel 15 Gm Gel..Gram.) 15 gm PO Q15M PRN; Protocol PRN Reason: per Hypoglycemia Standing Ord. Insulin Glargine (Insulin Glargine,Hum.Rec.Anlog 100 Unit/Ml 10 Ml Vial) 15 unit SUBCUT BEDTIME [facility] Last Admin: 01/15/22 22:08 Dose: 15 unit Documented by: Insulin Human Lispro (Insulin Lispro 100 Unit/Ml 3 Ml Vial) 0 unit SUBCUT QIDACHS [facility]; Protocol Last Admin: 01/16/22 08:27 Dose: Not Given Documented by: Levothyroxine Sodium (Levothyroxine Sodium 50 Mcg Tablet) 50 mcg PO DAILY@0600 [facility] Last Admin: 01/16/22 05:52 Dose: 50 mcg Documented by: Lisinopril (Lisinopril 5 Mg Tablet) 5 mg PO DAILY [facility]; Protocol Last Admin: 01/16/22 08:28 Dose: 5 mg Documented by: Multivitamins/Vitamin C (Multivitamin Tablet) 1 tab PO DAILY [facility] Last Admin: 01/16/22 08:28 Dose: 1 tab Documented by: Omeprazole (Omeprazole 20 Mg Capsule.) 20 mg PO DAILY@0630 [facility] Last Admin: 01/16/22 05:52 Dose: 20 mg Documented by: Pharmacy Consult (Consult Rx Perform Med Rec) 1 each MISCELLANE ONCE PRN PRN Reason: Consult order Sodium Chloride (0.9 % Sodium Chloride Flush 3 Ml Syringe) 3 ml IVFLUSH QSHIFT [facility] Last Admin: 01/16/22 08:30 Dose: 3 ml Documented by: Vitamin D (Cholecalciferol (Vitamin D3) 25 Mcg Tablet) 25 mcg PO DAILY [facility] Last Admin: 01/16/22 08:28 Dose: 25 mcg Documented by: Time Spent With Patient Time: Total time spent is greater than 50% in coordination of care (as documented) at patient's floor/unit and/or counseling patient: Time with patient: 25 - 35 minutes Progress Note: Quality Stroke Does the patient have a stroke diagnosis?: No Procedures Date of Service Date of Service: 01/16/22
[2022-01-16 11:31] LABS: Glucose, Whole Blood 119 mg/dL (60-115)
[2022-01-16 13:05] LABS: Glucose, Whole Blood 137 mg/dL (60-115)
--- NOTE | 2022-01-16 13:52 | HO.PM.IMPN ---
Subjective Subjective Date of Service: 01/16/22 Interval History: cc: bleeding leg interval history: pain at leg Cardiovascular Cardiovascular: Reports no additional cardiovascular complaints Respiratory Respiratory: Reports no additional respiratory complaints Physical Exam Vital Signs: Vital Signs: Last Vital Signs Temp 97.5 F 01/16/22 10:57 Pulse 36 L 01/16/22 10:57 Resp 14 01/16/22 10:57 BP 120/39 L 01/16/22 10:57 Pulse Ox 95 01/16/22 10:57 BMI result Body Mass Index 29.2 General: AO X 3, no acute distress Resp: CTA bilateral, no accessory muscles used CVS: S1,S2, slow irregular GI: soft, non tender, non distended Neuro: mild left hemiparesis Psych: agitated affect, appropriate insight left AKA right dressing on leg Objective Data Active Medications Acetaminophen (Acetaminophen 325 Mg Tablet) 650 mg PO BID [facility] Last Admin: 01/16/22 08:29 Dose: Not Given Documented by: WADE Non-Admin Reason: Previously Administered Aspirin (Aspirin 81 Mg Tab.Chew) 81 mg PO DAILY [facility] Last Admin: 01/16/22 08:28 Dose: 81 mg Documented by: WADE Atorvastatin Calcium (Atorvastatin Calcium 10 Mg Tablet) 10 mg PO BEDTIME [facility] Last Admin: 01/15/22 22:07 Dose: 10 mg Documented by: CRISTOPHER Dextrose (Dextrose 50 % 25 Gm/50 Ml Syringe) 25 gm IVPUSH Q15M PRN; Protocol PRN Reason: per Hypoglycemia Standing Ord. Doxazosin Mesylate (Doxazosin Mesylate 2 Mg Tablet) 8 mg PO BEDTIME [facility]; Protocol Last Admin: 01/15/22 22:06 Dose: 8 mg Documented by: CRISTOPHER Enoxaparin Sodium (Enoxaparin Sodium 40 Mg/0.4 Ml Syringe) 40 mg SUBCUT Q24H [facility] Last Admin: 01/16/22 08:28 Dose: 40 mg Documented by: WADE Ferrous Sulfate (Ferrous Sulfate 324 Mg Tablet.Dr) 324 mg PO DAILY [facility] Last Admin: 01/16/22 08:28 Dose: 324 mg Documented by: WADE Glucose (Glucose Gel 15 Gm Gel..Gram.) 15 gm PO Q15M PRN; Protocol PRN Reason: per Hypoglycemia Standing Ord. Insulin Glargine (Insulin Glargine,Hum.Rec.Anlog 100 Unit/Ml 10 Ml Vial) 15 unit SUBCUT BEDTIME [facility] Last Admin: 01/15/22 22:08 Dose: 15 unit Documented by: CRISTOPHER Insulin Human Lispro (Insulin Lispro 100 Unit/Ml 3 Ml Vial) 0 unit SUBCUT QIDACHS [facility]; Protocol Last Admin: 01/16/22 13:03 Dose: Not Given Documented by: WADE Non-Admin Reason: No Insulin Coverage Levothyroxine Sodium (Levothyroxine Sodium 50 Mcg Tablet) 50 mcg PO DAILY@0600 [facility] Last Admin: 01/16/22 05:52 Dose: 50 mcg Documented by: MIGUEL Lisinopril (Lisinopril 5 Mg Tablet) 5 mg PO DAILY [facility]; Protocol Last Admin: 01/16/22 08:28 Dose: 5 mg Documented by: WADE Multivitamins/Vitamin C (Multivitamin Tablet) 1 tab PO DAILY [facility] Last Admin: 01/16/22 08:28 Dose: 1 tab Documented by: WADE Omeprazole (Omeprazole 20 Mg Capsule.) 20 mg PO DAILY@0630 [facility] Last Admin: 01/16/22 05:52 Dose: 20 mg Documented by: MIGUEL Pharmacy Consult (Consult Rx Perform Med Rec) 1 each MISCELLANE ONCE PRN PRN Reason: Consult order Sodium Chloride (0.9 % Sodium Chloride Flush 3 Ml Syringe) 3 ml IVFLUSH QSHIFT [facility] Last Admin: 01/16/22 08:30 Dose: 3 ml Documented by: WADE Vitamin D (Cholecalciferol (Vitamin D3) 25 Mcg Tablet) 25 mcg PO DAILY [facility] Last Admin: 01/16/22 08:28 Dose: 25 mcg Documented by: WADE Labs CBC & Chem 7: 01/16/22 05:53 01/16/22 05:53 Labs: Laboratory Results - last 24 hr 01/15/22 01/15/22 01/16/22 16:14 21:22 05:53 MCV 88.9 MCH 30.2 MCHC 33.9 RDW 13.0 Plt Count 235 MPV 10.2 Absolute Nucleated RBC 0.000 Nucleated RBC % (auto) 0.0 Anion Gap Estim Creat Clear Calc Estimated GFR POC Glucose 127 H 200 H Fasting Glucose Calcium 01/16/22 01/16/22 01/16/22 05:53 07:22 12:57 MCV MCH MCHC RDW Plt Count MPV Absolute Nucleated RBC Nucleated RBC % (auto) Anion Gap 10 L Estim Creat Clear Calc 70.3 Estimated GFR > 60 POC Glucose 119 H 137 H Fasting Glucose 111 H Calcium 8.7 Assessment and Plan (1) Diabetes mellitus: Status: Acute Plan 76M presented for bleeding rle wound, found to have bradycardia, hyponatremia bleeding RLE wound dressed/compression continue hold xarelto for now chronic atrial fibrillation with slow ventircular response hold carvedilol, monitor on tele, cardio appreciated, likely to need pacer if no improvement off coreg holding xarelto for wound bleeding hyponatremia holding lasix fluid restrict, monitor, improved at appripriate rate HTN coreg on hold lisinopril ?chf - unspecified lasix on hold DM basal, bolus insulin history of cva mild left hemiparesis asa, statin hypothyroid synthroid chronic urinary retention alpha sandoval dodd dvt prophylaxis - will use lovenox while holding xarelto full code Quality Stroke Does the patient have a stroke diagnosis?: No VTE Prior VTE?: No VTE Risk Level:: Medical - moderate - high VTE Device Contraindication: Treatment Not Indicated VTE Drug Contraindication: N/A - Med Ordered
--- NOTE | 2022-01-16 14:25 | PC.NURSE ---
Pt remains A&Ox3, agitated, denies CP, lightheadedness or dizziness at this time. HR in the 30's on the monitor with BP as documented. Call stuart within reach. Will continue to monitor.
--- NOTE | 2022-01-16 15:14 | PC.NURSE ---
Pt's sister asking questions, per pt, intermediate medical staff Vanessa Wren states pt can return to the home, MD made aware. Sister provided Vanessa Wren's contact information. Sister on the phone with Vanessa rWen at this time.
[2022-01-16 15:22] VITALS: BP 91/49; PULSE 50; RESP 14; TEMP 36.7; O2SAT 97
[2022-01-16 18:28] LABS: Glucose, Whole Blood 103 mg/dL (60-115)
[2022-01-16 19:25] VITALS: BP 91/49; PULSE 52; RESP 15; TEMP 36.4
--- NOTE | 2022-01-16 20:01 | PC.NURSE ---
RN AT PTS BEDSIDE TO ASSESS PTS WOUND. PT CONTINUES TO BE VERY VERBALLY ABUSIVE/VERBALLY AGGRESSIVE TO STAFF REFUSING CARE STATING 'DO NOT TOUCH ME, LET IT GET AN INFECTION SO I CAN COME BACK HERE AND NATASHA THE SHIT OUT OF YOU ASSHOLES DESPITE THE PATIENT CONTINUING TO BERATE THIS RN I DID ATTEMPT TO PROVIDE TO GIVE WOUND CARE TO THIS PATIENT WHO STATED GET THE HELL OUT OF MY ROOM AND SHUT THE GOD DAMN LIGHT OFF ON YOUR WAY OUT
[2022-01-16 21:25] LABS: Glucose, Whole Blood 148 mg/dL (60-115)
--- NOTE | 2022-01-16 21:39 | PC.NURSE ---
RN AT BEDSIDE TO EXPLAIN PTS MEDS TO HIM, PT STATES I DON'T WANT TO HEAR WHATEVER THE HELL YOU HAVE TO SAY, GIVE ME WHAT YOU ARE GOING TO GIVE ME AND GET OUT. CURRENT AWAITING PHARMACY TO BRING MEDS AND PT WILL BE MEDICATED W/EVERYTHING AT ONCE TO LIMIT CONTINUED VERBAL ABUSE THE STAFF IS RECEIVING WHEN PROVIDING CARE.
[2022-01-16] MEDS: Doxazosin Mesylate 2 MG TABLET 8 MG PO (22:18)
[2022-01-16] MEDS: Pregabalin 100 MG CAPSULE PO (22:19)
[2022-01-16] MEDS: Insulin Glargine,Hum.rec.anlog 100 UNIT/ML 10 ML VIAL 15 UNIT SUBCUT (22:19)
[2022-01-16] MEDS: Atorvastatin Calcium 10 MG TABLET PO (22:19)
--- NOTE | 2022-01-17 01:12 | PC.NURSE ---
HOSPITALIST MADE AWARE OF CONTINUED BRADYCARDIA, PT 30S-50S THROUGHOUT THE NIGHT, CONTINUES TO DENY CP, OR FEELING LIGHT HEADED. PER PREVIOUS CARDIOLOGY NOTE PT IS REFUSING ANY CARDIAC CARE, STATES HE WILL SEEK CARDIAC TX ELSEWHERE BECAUSE THIS HOSPITAL AND THE STAFF ARE ALL INCOMPETENT HERE AWARE
[2022-01-17 06:58] LABS: Hematocrit 26.3 % (42.0-52.0); Hemoglobin 8.9 g/dl (14.0-18.0); Mean Corpuscular HGB Conc 33.8 g/dl (31.0-36.0); Mean Corpuscular Hemoglobin 30.5 pg (27.0-33.0); Mean Corpuscular Volume 90.1 fL (80.0-98.0); Mean Platelet Volume 10.3 fL (9.4-12.4); Platelet Count 247 X10*3/uL (160-400); Red Blood Count 2.92 X10*6/uL (4.60-5.80); Red Cell Distribution Width 13.2 % (11.0-16.0)
[2022-01-17 07:23] LABS: Anion Gap 12 (12-20); Blood Urea Nitrogen 32 mg/dL (9-16); Carbon Dioxide 26 mmol/L (22-29); Chloride 100 mmol/L (96-108); Creatinine Clr Calc Pharmacy 65.3; Estimated Glomerular Filt Rate 55; Glucose Fasting 124 mg/dL (60-99); Potassium 4.8 mmol/L (3.3-5.1); Sodium 133 mmol/L (135-145)
[2022-01-17 08:39] LABS: Glucose, Whole Blood 126 mg/dL (60-115)
[2022-01-17 08:55] VITALS: BP 119/36; PULSE 42; RESP 14; O2SAT 97
[2022-01-17] MEDS: Acetaminophen 325 MG TABLET 650 MG PO ×2 (09:20→21:13)
[2022-01-17] MEDS: Pregabalin 100 MG CAPSULE PO ×2 (09:20→21:13)
[2022-01-17] MEDS: Aspirin 81 MG TAB.CHEW PO (09:20)
[2022-01-17] MEDS: Cholecalciferol (Vitamin D3) 25 MCG TABLET PO (09:20)
[2022-01-17] MEDS: Omeprazole 20 MG CAPSULE.DR PO (09:20)
[2022-01-17] MEDS: Multivitamin TABLET 1 TAB PO (09:20)
[2022-01-17] MEDS: Levothyroxine Sodium 50 MCG TABLET PO (09:20)
[2022-01-17] MEDS: Ferrous Sulfate 324 MG TABLET.DR PO (09:20)
[2022-01-17] MEDS: Enoxaparin Sodium 40 MG/0.4 ML SYRINGE SUBCUT (09:26)
--- NOTE | 2022-01-17 10:28 | PC.NURSE ---
925 Pt is very agitated upon nurse arrival to the room. Pt stating that the nursing staff is not provided him what he needs. pt states that he needs antibiotics for his wound, that he has been asking for ensure and no one has gotten it for him, and pt is requesting to be discharged. RN vance texted Dr. Bob. Per Dr. Bob, pt to not get abx. Dr. Restrepo said it is okay for pt to have ensure, so RN called the kitchen and got [address] Bob we are waiting for cardio to sign off on pt to go home. Pt okay with plan. pt is resting in the bed at this time offering no more complaints than what is listed. belongings and callbell within reach. Pt medicated per [address] cardio reaching out to Dr. Bob.
--- NOTE | 2022-01-17 12:14 | PC.NURSE ---
1135 RN changed pts wound dressing per provider verbal order. wound cleaned with sterile normal saline, and dressed with xeroform and telfa pads. ABD placed on top of the telfa and the wound is wrapped. xeroform and telfa placed per provider verbal order at bedside. [id number] RN received a phone call from Fani at [employer]. Contact # [phone]. Per Fani, pt is not able to go to the facility because there is no one to do the intake for him and pt needs wound services and [facility] set up insulin admin. Dr. Bob made aware and is following up. Pt made aware and is very upset. Pt stating that this is the same thing that happened yesterday. pt agitated at this time. redirection and reassurance provided by this RN. Pt not receptive to RN education and reassurance at this time.
--- NOTE | 2022-01-17 12:27 | MHC.CM.PN ---
Addendum entered by Amy Sanders 01/17/22 13:37: CALL FROM HEATH RUSSO OF [facility] ([phone]) WHO SAYS THAT [facility] CAN PROVIDE WOUND CARE AND PATIENT'S DAILY INSULIN INJECTIONS CASE MANAGEMENT ASKED TO CALL KARAN BACK WHEN A DC TIME AND DATE IS ARRANGED SO THAT SHE CAN ARRANGE FOR AN RN. PATIENT TELLS THIS SECURITY GUARDS DISPATCHER THAT HIS SISTER SAM IS HIS HCP, AND HE ALSO WANTS TO ADD HIS [employer] BOX TENDER, L[place]IS TO THE DOCUMENT. HCP COMPLETED AND UPLOADED INTO [employer]. PATIENT HAS ORIGINAL. AT TIME OF THIS NOTE, PATIENT' BROTHER MATIAS IS BEDSIDE VISITING. COMPETENCY EVAL ORDERED FOR DETERMINATION OF PATIENT'S SUMIT,LITY TO UNDERSTAND THE SEVERITY OF ILLNESS, WELL IMPLICATIONS OF NOT RECEIVING A PACE MAKER FOR CONTINUED HEALTH THIS SECURITY GUARDS DISPATCHER ALSO SPOKE WITH SKILLED NURSING RN [place] ([phone]) WHO IS AWARE OF HCP COMPLETION, ALTRANAIAS AVAILABILITY, AND COMPETENCY EVAL ORDER. Original Note: CALL TO [facility] [place] (A) @ [phone]. MESSAGE LEFT WITH ON-CALL SERVICE TO HAVE AN AGENT CALL THIS SECURITY GUARDS DISPATCHER BACK. CM ATTEMPTING TO FIND OUT IF SERVICES WILL BE OFFERED FOR PATIENT STILL, HE PLANS TO DC TODAY. CM TO AMEND THIS NOTE WITH RESULTS OF ATTEMPT AND NOTIFY HOSPITALIST
--- NOTE | 2022-01-17 12:31 | P.PNIM_ITS ---
Subjective Subjective Date of Service: 01/17/22 Interval History: cc: bleeding leg interval history: pain at leg Cardiovascular Cardiovascular: Reports no additional cardiovascular complaints Respiratory Respiratory: Reports no additional respiratory complaints Physical Exam Vital Signs: Vital Signs: Last Vital Signs Temp 97.5 F 01/16/22 19:25 Pulse 42 L 01/17/22 08:55 Resp 14 01/17/22 08:55 BP 119/36 L 01/17/22 08:55 Pulse Ox 97 01/17/22 08:55 BMI result Body Mass Index 29.2 General: AO X 3, no acute distress Resp:? CTA bilateral, no accessory muscles used CVS: S1,S2, slow irregular GI: soft, non tender, non distended Neuro:? mild left hemiparesis Psych: agitated affect, appropriate insight? left AKA right leg wound, no active bleed, non infected, small hematoma, Objective Data Active Medications Acetaminophen (Acetaminophen 325 Mg Tablet) 650 mg PO BID [facility] Last Admin: 01/17/22 09:20 Dose: 650 mg Documented by: AMY Aspirin (Aspirin 81 Mg Tab.Chew) 81 mg PO DAILY [facility] Last Admin: 01/17/22 09:20 Dose: 81 mg Documented by: AMY Atorvastatin Calcium (Atorvastatin Calcium 10 Mg Tablet) 10 mg PO BEDTIME [facility] Last Admin: 01/16/22 22:19 Dose: 10 mg Documented by: JASWANT Dextrose (Dextrose 50 % 25 Gm/50 Ml Syringe) 25 gm IVPUSH Q15M PRN; Protocol PRN Reason: per Hypoglycemia Standing Ord. Doxazosin Mesylate (Doxazosin Mesylate 2 Mg Tablet) 8 mg PO BEDTIME [facility]; Protocol Last Admin: 01/16/22 22:18 Dose: 8 mg Documented by: JASWANT Enoxaparin Sodium (Enoxaparin Sodium 40 Mg/0.4 Ml Syringe) 40 mg SUBCUT Q24H [facility] Last Admin: 01/17/22 09:26 Dose: 40 mg Documented by: AMY Ferrous Sulfate (Ferrous Sulfate 324 Mg Tablet.Dr) 324 mg PO DAILY [facility] Last Admin: 01/17/22 09:20 Dose: 324 mg Documented by: AMY Glucose (Glucose Gel 15 Gm Gel..Gram.) 15 gm PO Q15M PRN; Protocol PRN Reason: per Hypoglycemia Standing Ord. Insulin Glargine (Insulin Glargine,Hum.Rec.Anlog 100 Unit/Ml 10 Ml Vial) 15 unit SUBCUT BEDTIME [facility] Last Admin: 01/16/22 22:19 Dose: 15 unit Documented by: JASWANT Insulin Human Lispro (Insulin Lispro 100 Unit/Ml 3 Ml Vial) 0 unit SUBCUT QIDACHS [facility]; Protocol Last Admin: 01/17/22 08:59 Dose: Not Given Documented by: AMY Non-Admin Reason: No Insulin Coverage Levothyroxine Sodium (Levothyroxine Sodium 50 Mcg Tablet) 50 mcg PO DAILY@0600 [facility] Last Admin: 01/17/22 09:20 Dose: 50 mcg Documented by: AMY Multivitamins/Vitamin C (Multivitamin Tablet) 1 tab PO DAILY [facility] Last Admin: 01/17/22 09:20 Dose: 1 tab Documented by: AMY Omeprazole (Omeprazole 20 Mg Jewel.) 20 mg PO DAILY@0630 [facility] Last Admin: 01/17/22 09:20 Dose: 20 mg Documented by: AMY Pharmacy Consult (Consult Rx Perform Med Rec) 1 each MISCELLANE ONCE PRN PRN Reason: Consult order Pregabalin (Pregabalin 100 Mg Capsule) 100 mg PO BID [facility] Last Admin: 01/17/22 09:20 Dose: 100 mg Documented by: AMY Sodium Chloride (0.9 % Sodium Chloride Flush 3 Ml Syringe) 3 ml IVFLUSH QSHIFT [facility] Last Admin: 01/17/22 09:14 Dose: Not Given Documented by: AMY Non-Admin Reason: Med Not Available Vitamin D (Cholecalciferol (Vitamin D3) 25 Mcg Tablet) 25 mcg PO DAILY [facility] Last Admin: 01/17/22 09:20 Dose: 25 mcg Documented by: AMY Labs CBC & Chem 7: 01/17/22 05:58 01/17/22 05:58 Labs: Laboratory Results - last 24 hr 01/16/22 01/16/22 01/16/22 12:57 18:20 21:20 MCV MCH MCHC RDW Plt Count MPV Absolute Nucleated RBC Nucleated RBC % (auto) Anion Gap Estim Creat Clear Calc Estimated GFR POC Glucose 137 H 103 148 H Fasting Glucose Calcium 01/17/22 01/17/22 01/17/22 05:58 05:58 08:36 MCV 90.1 MCH 30.5 MCHC 33.8 RDW 13.2 Plt Count 247 MPV 10.3 Absolute Nucleated RBC 0.000 Nucleated RBC % (auto) 0.0 Anion Gap 12 Estim Creat Clear Calc 65.3 Estimated GFR 55 POC Glucose 126 H Fasting Glucose 124 H Calcium 9.0 Assessment and Plan (1) Diabetes mellitus: Status: Acute Plan 76M presented for bleeding rle wound, found to have bradycardia, hyponatremia bleeding RLE wound dressed/compression continue hold xarelto for now chronic atrial fibrillation with slow ventircular response continue to hold coreg, cardio recommending pacer, patient refusing, he has demonstrated understanding of risks including hyponatremia holding lasix fluid restrict,improved at appropriate rate HTN coreg on hold lisinopril ?chf - unspecified lasix on hold DM basal, bolus insulin history of cva mild left hemiparesis asa, statin hypothyroid synthroid chronic urinary retention alpha sandoval dodd dvt prophylaxis - will use lovenox while holding xarelto full code Quality Stroke Does the patient have a stroke diagnosis?: No VTE Prior VTE?: No VTE Risk Level:: Medical - moderate - high VTE Device Contraindication: Treatment Not Indicated VTE Drug Contraindication: N/A - Med Ordered
[2022-01-17 12:40] VITALS: BP 120/34; PULSE 41; RESP 12; O2SAT 97
[2022-01-17 13:09] LABS: Glucose, Whole Blood 165 mg/dL (60-115)
[2022-01-17 16:53] VITALS: BP 118/57; PULSE 44; RESP 16; TEMP 36.7; O2SAT 97
[2022-01-17 17:15] LABS: Glucose, Whole Blood 196 mg/dL (60-115)
[2022-01-17] MEDS: Insulin Lispro 100 UNIT/ML 3 ML VIAL SUBCUT ×2 (18:22→21:14)
[2022-01-17] MEDS: 0.9 % Sodium Chloride Flush 3 ML SYRINGE IVFLUSH (18:23)
[2022-01-17 19:10] VITALS: BP 114/53; PULSE 42; RESP 16; TEMP 36.6; O2SAT 96
[2022-01-17 20:18] LABS: Glucose, Whole Blood 169 mg/dL (60-115)
[2022-01-17] MEDS: Atorvastatin Calcium 10 MG TABLET PO (21:13)
[2022-01-17] MEDS: Doxazosin Mesylate 2 MG TABLET 8 MG PO (21:14)
[2022-01-17] MEDS: Insulin Glargine,Hum.rec.anlog 100 UNIT/ML 10 ML VIAL 15 UNIT SUBCUT (21:14)
[2022-01-17 23:21] VITALS: BP 137/65; PULSE 46; RESP 18; TEMP 37.3; O2SAT 95
[2022-01-18] MEDS: 0.9 % Sodium Chloride Flush 3 ML SYRINGE IVFLUSH ×3 (00:19→16:09)
[2022-01-18 03:55] VITALS: BP 131/57; PULSE 44; RESP 18; TEMP 37.4; O2SAT 96
[2022-01-18] MEDS: Levothyroxine Sodium 50 MCG TABLET PO (06:32)
[2022-01-18] MEDS: Omeprazole 20 MG CAPSULE.DR PO (06:32)
[2022-01-18 07:45] LABS: Glucose, Whole Blood 131 mg/dL (60-115)
[2022-01-18 08:00] VITALS: BP 138/58; PULSE 41; RESP 16; TEMP 37.1; O2SAT 95
--- NOTE | 2022-01-18 08:52 | PC.NURSE ---
Skin/wound assessment completed. 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 Woundres gel applied covered with foam dressing for protection. Patient has a large laceration with 19 sutures and hematoma. Bruising length of kapoor with small blisters. Xeroform applied to laceration and small open area covered with non woven gauze, roll gauze and samuel wrap. No other skin issues noted at this time.
[2022-01-18] MEDS: Aspirin 81 MG TAB.CHEW PO (09:19)
[2022-01-18] MEDS: Ferrous Sulfate 324 MG TABLET.DR PO (09:19)
[2022-01-18] MEDS: Acetaminophen 325 MG TABLET 650 MG PO (09:19)
[2022-01-18] MEDS: Pregabalin 100 MG CAPSULE PO (09:19)
[2022-01-18] MEDS: Cholecalciferol (Vitamin D3) 25 MCG TABLET PO (09:19)
[2022-01-18] MEDS: Multivitamin TABLET 1 TAB PO (09:19)
[2022-01-18 11:38] LABS: Glucose, Whole Blood 175 mg/dL (60-115)
--- NOTE | 2022-01-18 11:39 | MHC.CM.PN ---
awaiting psych evl to determine competency for dc decision
[2022-01-18 11:50] VITALS: BP 141/54; PULSE 43; RESP 16; TEMP 37.4; O2SAT 94
[2022-01-18] MEDS: Insulin Lispro 100 UNIT/ML 3 ML VIAL SUBCUT (12:24)
--- NOTE | 2022-01-18 13:47 | PM.DS ---
DS: Providers Provider Date of Service: 01/18/22 Date of admission: 01/15/22 12:45 Primary care physician: Nonstaff Physician Consults: 01/15/22 12:42 Consult to Cardiology Routine Consulting Provider: Julio Crystal Reason for consultation: afib with svr; lynsey 01/17/22 12:37 Consult to Psychiatry Routine Consulting Provider: Psych Covering Reason for consultation: capacity to refuse pacemaker? DS: Diagnosis Discharge Diagnosis (1) Diabetes mellitus: Status: Acute DS: Summary Hospital Course Hospital Course: patient was admitted for bleeding RLE wound. sutures were applied and Xarelto was held. Bleeding has stopped and Xarelto can be restarted. He should continue with daily dressings. Patient was noted to have chronic atrial fibrillation with slow ventricular response. His carvedilol was held. However, his rate continued to be slow as low as high 20s, averaging in the low 40s. He was seen by Cardiology recommended pacemaker placement. Patient refused pacemaker placement, he demonstrated understanding of the risk including , he was confirmed to have capacity to make this decision by Psychiatry. Patient was also noted to be hyponatremic. He reported excess fluid drinking a before bedtime, he has been instructed to withhold on this and his sodium was returned to normal at the appropriate rate. He was also noted to be hypotensive, therefore his lisinopril has been held. Patient has decided to leave against medical advice without pacemaker placement. He will return to his [place] [facility] with visiting nurse services. Time Spent with Patient Time attestation: Total time spent providing and/or coordinating discharge services: Discharge coordination time: Greater than 30 minutes Quality: Stroke Does the patient have a stroke diagnosis?: No Physical Exam Vital Signs: Vital Signs: Last Vital Signs Temp 99.3 F 01/18/22 11:50 Pulse 43 L 01/18/22 11:50 Resp 16 01/18/22 11:50 BP 141/54 H 01/18/22 11:50 Pulse Ox 94 01/18/22 11:50 BMI result Body Mass Index 29.2 General: AO X 3, no acute distress Resp:? CTA bilateral, no accessory muscles used CVS: S1,S2, slow irregular GI: soft, non tender, non distended Neuro:? mild left hemiparesis Psych: agitated affect, appropriate insight? left AKA right leg wound, no active bleed, non infected, small hematoma, DS: Data Data Completed and Pending Labs on day of discharge: Laboratory Results - last 24 hr 01/17/22 01/17/22 01/18/22 17:10 20:14 07:39 POC Glucose 196 H 169 H 131 H 01/18/22 11:27 POC Glucose 175 H Discharge Plan Discharge Patient Disposition: Left Against Medical Advice Discharge Diagnosis: bleeding wound, hyponatremia, afib with svr Referrals: Physician,Nonstaff [Primary Care Provider] - 1 Week Discharge Medications: Continued furosemide 40 mg tablet 1 tab PO DAILY 0RF atorvastatin 10 mg tablet 1 tab PO BEDTIME 0RF doxazosin 8 mg tablet 1 tab PO BEDTIME 0RF tamsulosin 0.4 mg capsule 1 cap PO BEDTIME 0RF levothyroxine 50 mcg tablet 1 tab PO DAILY 0RF omeprazole 20 mg capsule,delayed release(DR/EC) 1 cap PO DAILY 0RF Levemir U-100 Insulin 100 unit/mL solution 50 unit subcut DAILY 0RF Janumet 50-500 mg tablet 1 tab PO BID 0RF Xarelto 20 mg tablet 1 tab PO DAILY 0RF multivitamin Tablet 1 tab PO DAILY 0RF acetaminophen 325 mg Tablet 650 mg PO BID 0RF polyethylene glycol 3350 [Miralax] 17 gram Powder In Packet 17 g PO DAILY PRN (Reason: Constipation) 0RF aspirin 81 mg Tablet,Chewable 81 mg PO DAILY 0RF polyethylene glycol 3350 [Miralax] 17 gram/dose Powder 17 g PO MOWEFR 0RF Acidophilus Capsule 1 cap PO DAILY 0RF cholecalciferol (vitamin D3) 25 mcg (1,000 unit) Tablet 25 mcg PO DAILY 0RF ferrous sulfate 324 mg (65 mg iron) Tablet,Delayed Release (Dr/Ec) 324 mg PO DAILY 0RF pregabalin 100 mg capsule 1 cap PO BID 0RF Discontinued carvedilol 12.5 mg tablet 1 tab PO BID 0RF lisinopril 5 mg tablet 1 tab PO DAILY 0RF Discharge Orders: Discharge Order (Routine); Ordered 01/18/22 Ordered By: Elías Bob Diet: advance to usual diet Activity on Discharge: As tolerated Stand Alone Forms: Patient Portal Discharge page Care Plan Goals: avoid symptomatic bradycardia Health Concerns: bradycardia, leg wound, hyponatremia Plan of Treatment: xeroform with nonwoven gauze/roll gauze/samuel wrap daily to rle, fluid restrict to 1500cc per day. stop coreg, lisinopril, follow up with cardiology, pacer is currently recommended, by not pursuing inpatient there is risk of asystole or severe bradycardia leading to cardiac arrest. Assessment: see above
--- NOTE | 2022-01-18 14:02 | MHC.CM.PN ---
pt is being dcd today 4:30 pt is signing out ama pt is refusing recommended treatment for a pacemenaker he signed a molst to be a full code spoke..spoke with christiana [phone] from group she is aware pt is being dcd at 4:30 by amb with lawanda craig t/w called and spoke with yuli [phone] confirm dc time of 4:30 ..requested imfo and will be sent with pt labs dc summary etc.confirmed dc time with christiana
--- NOTE | 2022-01-18 14:19 | P.F2F_ITS ---
Service Date Service Date: 01/18/22 Encounter Date of encounter: 01/18/22 Reasons for Services Signs and symptoms assessed: recent rle wound, left aka Reason for senior care: wound care (see discharge instructions), diabetic teaching, medication management, medication treatment, teach disease management and GI/ assessment Homebound: Leaving the home is medically contraindicated at this time without the asist of a device and/or another person due th the listed conditions above and below. Reason homebound: unsteady gait / fall risk Certification: Based on the above findings, I certify that this patient is confined to the home and needs intermittent senior care care, physical therapy and/or speech therapy, or continues to need occupational therapy. The patient is under my care, and I have initiated the establishment of the plan of care. The patient will be followed by a physician who will periodically review the plan of care.
--- NOTE | 2022-01-18 14:31 | MHC.CM.PN ---
addendum mpt was seen by psych and determined to be competent to make decisions..lawanda will not be in till 01/19 in the morning so she request the rn/johan give pt longacting insulin prior topt leaving today
[2022-01-18] MEDS: Insulin Glargine,Hum.rec.anlog 100 UNIT/ML 10 ML VIAL 25 UNIT SUBCUT (16:08)
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
== END 2022-01-18 16:58 | disposition left against medical advice (07) | DRG 309 ==
LOC: HO.ED 12:05 → HO.EDOVER 12:59 → HO.IMC 01-17 15:24
PROVIDERS: Physician Assistant; Admitting Provider Internal Medicine; Emergency Provider Emergency Medicine; Visit Provider Internal Medicine
DX: I48.20 Chronic atrial fibrillation, unspecified (principal); E87.1 Hypo-osmolality and hyponatremia; I69.854 Hemiplegia and hemiparesis following other cerebrovascular disease affecting left non-dominant side; S81.811A Laceration without foreign body, right lower leg, initial encounter; I11.0 Hypertensive heart disease with heart failure; E11.9 Type 2 diabetes mellitus without complications; I50.9 Heart failure, unspecified; W22.8XXA Striking against or struck by other objects, initial encounter; K21.9 Gastro-esophageal reflux disease without esophagitis; F43.20 Adjustment disorder, unspecified; E03.9 Hypothyroidism, unspecified; R33.9 Retention of urine, unspecified; Z20.822 Contact with and (suspected) exposure to COVID-19; Z89.612 Acquired absence of left leg above knee; Z79.4 Long term (current) use of insulin; Z79.01 Long term (current) use of anticoagulants; Z79.82 Long term (current) use of aspirin; Z79.890 Hormone replacement therapy; Z79.899 Other long term (current) drug therapy
CPT/HCPCS: 36415; 71045; 80048; 80076; 81001; 81003; 82947; 83735; 83880; 83935; 84300; 84484; 85025; 85027; 85610; 85730; 87635; 93005; 99285; J1650